=== PATIENT | female | born 1985 | race Caucasian/White ===

== ENCOUNTER 2021-11-23 16:47 | Emergency (ER) | payer BC ==
[2021-11-23] MEDS ORDERED: Sodium Chloride 0.9% 10 ML Syringe FLUSH PRN (16:58)
[2021-11-23] MEDS ORDERED: Sodium Chloride 0.9% 1,000 ML IV ONE (16:58)
[2021-11-23] MEDS ORDERED: Sodium Chloride 0.9% 2.5 ML Syringe FLUSH PRN (16:58)
[2021-11-23] MEDS ORDERED: Amoxicillin/Clavulanate K 875-125 MG Tab PO ONE ×2 (17:17→19:07)
[2021-11-23 17:55] LABS: BLOOD UREA NITROGEN,BUN 4 mg/dL (7.0-18.0); CARBON DIOXIDE,CO2 25.5 mmol/L (21.0-32.0); CHLORIDE,CL 100 mmol/L (98-107); GLUCOSE RANDOM 108 mg/dL (74-106); SODIUM,NA 138 mmol/L (136-145)
[2021-11-23] MEDS ORDERED: Potassium Chloride 20 MEQ Tab.ER PO ONE (18:12)
[2021-11-23] MEDS ORDERED: Ketorolac 30 MG/ML SDV IVPUSH ONE (18:22)
== END 2021-11-23 19:34 | disposition home or self-care (01) ==
LOC: MW.ED 16:47
DX: I95.1 Orthostatic hypotension (principal); H65.93 Unspecified nonsuppurative otitis media, bilateral; E87.6 Hypokalemia
CPT/HCPCS: 36415; 70450; 80053; 81001; 81025; 85025; 93005; 96374; 99284; A9270; J1885; J3490; J7030